=== PATIENT | male | born 1965 | race Two or more races ===

== ENCOUNTER 2019-11-07 12:44 | Emergency (ER) | payer SELFPAY ==
[~2019-11-07] VITALS: Ht 172.7 cm; Wt 93.0 kg
[2019-11-07 14:41] VITALS: BP 121/74
== END 2019-11-07 16:29 | disposition home or self-care (01) ==
LOC: ER 12:44
DX: J06.9 Acute upper respiratory infection, unspecified (principal)
CPT/HCPCS: 71045